=== PATIENT | female | born 1970 | race Caucasian/White ===

== ENCOUNTER → 2017-02-09 | Outpatient (CLI) | payer BC ==
--- NOTE | 2017-02-09 11:44 | KCIC ---
PROCEDURE MR of the right shoulder HISTORY Chronic pain. Possible rotator cuff tear. TECHNIQUE Routine multiplanar sequences are obtained. COMPARISON None FINDINGS Acromioclavicular joint is mildly degenerative. Heterogeneous signal and thickening of the rotator cuff compatible with tendinosis. Small undersurface tear of the anterior supraspinatus tendon footprint measures about 5 millimeters AP diameter and 20 percent deep. No full-thickness rotator cuff tear. No significant subdeltoid bursal fluid. Trace glenohumeral joint effusion. Mild signal within the superior labrum compatible with degeneration or a small tear. Biceps tendon is intact. No bone lesion or acute fracture. No acute soft tissue injury. Mild cystic change at the posterior greater tuberosity. IMPRESSION 1. Rotator cuff tendinosis with a small partial thickness undersurface tear at the supraspinatus tendon footprint. 2. Superior labral degeneration versus tear. Electronically signed by: Emanuel Rowan MD (February 09, 2017 11:42:39)
== END | disposition home or self-care (01) ==
LOC: KCIC MRI 10:05
PROVIDERS: ATTEND Family Medicine
DX: M25.511 Pain in right shoulder (principal)
CPT/HCPCS: 73221

== ENCOUNTER → 2018-05-20 | Outpatient (CLI) | payer BC ==
--- NOTE | 2018-05-20 12:44 | KCIC ---
MRI Lumbar Spine without contrast History: Low back pain, neuropathy of the feet, spondylosis Technique: Multiplanar, multi sequential noncontrast MR imaging was performed of the lumbar spine. Contrast: None Comparison: December 25, 2013 Findings: Lumbar vertebral body stature is overall preserved other than multilevel Schmorl's nodes. AP alignment is within normal limits. There is mild disc desiccation L1-2 through L4-5, intervertebral disc spaces relatively preserved. There is no significant marrow edema. There is nonspecific edema of the posterior subcutaneous fat of the lower back. Conus terminates at L1. There is exophytic focus of T2 hyperintense signal of the left kidney which is not fully included about 2 cm in size. Not included on the axial images, there is a shallow protrusion at T11-12 without significant spinal stenosis. L1-L2: Spinal canal and neural foramina are adequate. L2-L3: There is mild facet degenerative change and buckling of the ligamentum flavum. Spinal canal and the neural foramina are adequate. L3-L4: There is mild facet degenerative change and buckling of the ligamentum flavum. Spinal canal and the neural foramina are adequate. L4-L5: There is mild facet degenerative change and buckling of the ligamentum flavum. Spinal canal is adequate. There is mild narrowing of the right neural foramen, left neural foramen adequate. L5-S1: Spinal canal and neural foramina are adequate. There is mild facet degenerative change on the right. Impression: 1. There is no significant lumbar spinal stenosis. There is mild narrowing of the right L4-5 neural foramen. There is multilevel mild facet degenerative change. 2. Not fully included, there is T2 hyperintense lesion of the left kidney, statistically more likely a cyst. Electronically signed by: Abdiaziz Syed MD (05/20/2018 12:41 PM) [facility]
== END | disposition home or self-care (01) ==
LOC: KCIC MRI 11:51
DX: M48.061 Spinal stenosis, lumbar region without neurogenic claudication (principal); M47.896 Other spondylosis, lumbar region
CPT/HCPCS: 72148

== ENCOUNTER → 2018-12-05 | Outpatient (CLI) | payer OTHER ==
--- NOTE | 2018-12-05 16:17 | KCIC ---
MRI of the right ankle without contrast dated 12/05/2018. No comparison available. CLINICAL INDICATION: Right ankle pain. History of Achilles tendon injury 3 weeks ago. TECHNIQUE: Routine multiplanar multisequence MR imaging of right ankle performed. No contrast administered. FINDINGS: There is thickening and increased signal of the distal Achilles tendon near its calcaneal attachment. There is intrasubstance partial tearing at its central aspect, estimated at about 50% thickness. No full-thickness tear or retraction. There is inflammatory changes throughout the Achilles peritenon. The plantar fascia is thickened and of intermediate signal. No full-thickness tear. Flexor and extensor tendons are intact. Mild thickening of the peroneus longus and peroneus brevis without full-thickness tear. Patchy edema throughout the subcutaneous fat. Anterior talofibular ligament and posterior talofibular ligament are intact. Tibiofibular ligaments and calcaneal fibular ligament are intact. No abnormality at the deltoid complex. Bone marrow signal is homogeneous. No marrow edema. Mild hypertrophic change of the tibiotalar joint and posterior subtalar joints. No osteochondral defect at the talar dome. There are small tibiotalar and posterior subtalar joint effusions. IMPRESSION: 1. Mild to moderate distal Achilles tendinosis with intrasubstance partial tearing at its insertion. No full-thickness tear. Moderate inflammatory changes along the Achilles peritenon. 2. Mild plantar fasciitis. 3. Mild tendinosis of the peroneus longus and peroneus brevis. 4. Nonspecific edema throughout the subcutaneous tissues. Electronically signed by: Emanuel Jones MD (12/05/2018 4:14 PM) [facility]
== END | disposition home or self-care (01) ==
LOC: KCIC MRI 15:02
PROVIDERS: ATTEND Family Medicine
DX: S86.011A Strain of right Achilles tendon, initial encounter (principal); M72.2 Plantar fascial fibromatosis; M25.471 Effusion, right ankle; X58.XXXA Exposure to other specified factors, initial encounter; Y93.89 Activity, other specified; Y92.89 Other specified places as the place of occurrence of the external cause; Y99.8 Other external cause status
CPT/HCPCS: 73721

== ENCOUNTER 2019-01-07 15:43 | Emergency (ER) | payer BC, OTHER ==
[~2019-01-07] VITALS: Ht 167.6 cm; Wt 131.5 kg
[2019-01-07 16:00] VITALS: BP 174/103
--- NOTE | 2019-01-07 16:14 | PHYS DOC ---
Adult General Chief Complaint Chief Complaint: FOOT INJURY PAIN HPI HPI Patient is a 48 year old F who reports she was walking in to [employer] and tripped on the curb and fell. She thought she just stubbed her R great toe but the pain has now continued and moved up into the foot. She scraped her R elbow as well but denies hitting her head or LOC. Pt is currently dealing with an injury to her R achilles tendon and has an appt with orthopedics on 01/13/19. Pt has hydrocodone at home, which is what she took for this discomfort. Review of Systems Review of Systems Constitutional: Denies fever or chills Respiratory: Denies cough or shortness of breath Cardiovascular: No chest pain. GI: Denies abdominal pain, nausea, vomiting, bloody stools or diarrhea Musculoskeletal: Denies back pain. Reports R foot pain Integument: Denies rash. Abrasion R elbow. Neurologic: Denies headache, focal weakness or sensory changes. All other systems were reviewed and found to be within normal limits, except as documented in this note. Physical Exam Physical Exam Constitutional: Well developed, well nourished, no acute distress, non-toxic appearance. HENT: Normocephalic, atraumatic Neck: Normal range of motion, no tenderness, supple, no stridor. Cardiovascular:Heart rate regular rhythm, no murmur Lungs & Thorax: Bilateral breath sounds clear to auscultation Abdomen: Bowel sounds normal, soft, no tenderness, no masses, no pulsatile masses. Skin: Warm,dry. Abrasion R elbow. No obvious contusion or edema to foot. Back: No tenderness, no CVA tenderness. Extremities: Tenderness over achilles and great toe. Full ROM with tenderness. Normal cap refill, however limited due to toenail fungus. Neurologic: Alert and oriented X 3, normal motor function, normal sensory function, no focal deficits noted. Psychologic: Affect normal, judgement normal, mood normal. Current Patient Data Vital Signs Vital Signs Date Time Temp Pulse Resp B/P (MAP) Pulse Ox O2 Delivery O2 Flow Rate FiO2 01/07/19 16:00 97.6 71 20 174/103 (126) 95 Room Air 97.6 EKG EKG [] Radiology/Procedures Radiology/Procedures Xray neg for acute fracture Course & Med Decision Making Course & Med Decision Making Pertinent Labs and Imaging studies reviewed. (See chart for details) Pt declined post op shoe, she has tennis shoe on at this time. Discussed RICE and close f/u with her ortho as planned. Pt has pain medicine at home so no medications prescribed today. Dragon Disclaimer Dragon Disclaimer This electronic medical record was generated, in whole or in part, using a voice recognition dictation system. Departure Departure Impression: Primary Impression: Foot sprain Disposition: HOME, SELF-CARE Condition: STABLE Referrals: ROSA PLAZA (PCP) Patient Instructions: Foot Sprain Additional Instructions: If symptoms persist, discuss with your orthopedic doctor at your appointment this month. Arnaud GODOY JENNIFER D PA Jan 07, 2019 16:14
--- NOTE | 2019-01-07 16:49 | RAD ---
EXAM: RIGHT FOOT 3 VIEWS. HISTORY: Right foot pain after a fall. COMPARISON: None. FINDINGS: Three views of the right foot are obtained. No fractures are identified. Alignment is normal. 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 It is moderate at the tarsometatarsal joints. There is a moderate to large posterior calcaneal spur. There is a small plantar calcaneal spur with small ossicles in the proximal plantar fascia. Soft tissue calcifications are noted along the distal leg. IMPRESSION: 1. No fracture. Osteoarthritis as above. 2. Large posterior calcaneal spur. Electronically signed by: Maida Zhao MD (01/07/2019 4:46 PM) [facility]
== END 2019-01-07 16:56 | disposition home or self-care (01) ==
LOC: ER 15:43
DX: S93.691A Other sprain of right foot, initial encounter (principal); S50.311A Abrasion of right elbow, initial encounter; W01.0XXA Fall on same level from slipping, tripping and stumbling without subsequent striking against object, initial encounter; Y93.01 Activity, walking, marching and hiking; Y92.512 Supermarket, store or market as the place of occurrence of the external cause; Y99.8 Other external cause status
CPT/HCPCS: 73630; 99284